=== PATIENT | male | born 1950 | race Caucasian/White ===

== ENCOUNTER → 2020-05-09 | Outpatient (CLI) | payer OTHER | LOC: HEART 5 07:39 | DX: R94.31 Abnormal electrocardiogram [ECG] [EKG] (principal); R06.02 Shortness of breath; R94.39 Abnormal result of other cardiovascular function study; I49.1 Atrial premature depolarization; I49.3 Ventricular premature depolarization; I08.0 Rheumatic disorders of both mitral and aortic valves | CPT/HCPCS: 78452; 93306; A9502; J2785 ==

== ENCOUNTER → 2021-01-25 | Outpatient (CLI) | payer OTHER | LOC: EXRD 13:35 | DX: M25.562 Pain in left knee (principal); Z91.81 History of falling; M17.12 Unilateral primary osteoarthritis, left knee | CPT/HCPCS: 73562 ==

== ENCOUNTER → 2021-05-02 | Outpatient (CLI) | payer MEDICARE | LOC: HEART 5 13:40 | DX: R94.31 Abnormal electrocardiogram [ECG] [EKG] (principal); I11.9 Hypertensive heart disease without heart failure | CPT/HCPCS: 93306 ==

== ENCOUNTER → 2021-05-15 | Outpatient (CLI) | payer MEDICARE | LOC: KOH-I 08:47 | DX: Z87.891 Personal history of nicotine dependence (principal); R91.8 Other nonspecific abnormal finding of lung field | CPT/HCPCS: 71271 ==

== ENCOUNTER → 2021-06-26 | Outpatient (CLI) | payer MEDICARE | LOC: HEART 5 10:21 | DX: R91.8 Other nonspecific abnormal finding of lung field (principal) | CPT/HCPCS: 94010; 94729 ==

== ENCOUNTER → 2021-07-06 | Outpatient (CLI) | payer MEDICARE | LOC: CT 07-04 10:00 | DX: R79.89 Other specified abnormal findings of blood chemistry (principal); R91.1 Solitary pulmonary nodule | CPT/HCPCS: Q9967 ==